=== PATIENT | female | born 2000 | race African-American/Black ===

== ENCOUNTER 2025-05-07 19:05 | Emergency (ER) | payer OTHER ==
[~2025-05-07] VITALS: Ht 157.5 cm; Wt 76.5 kg
[2025-05-07 19:09] VITALS: TEMP 97.8
[2025-05-07 21:22] LABS: BASO # 0.0 10^3/uL (0.0-0.2); BASO % 0.4 % (0.0-1.0); EOS # 0.1 10^3/uL (0.0-0.5); EOS % 1.1 % (0.0-3.0); LYMPH # 2.0 10^3/uL (1.5-5.0); LYMPH % 24.4 % (24.0-44.0); MONO # 0.7 10^3/uL (0.0-0.8); MONO % 8.2 % (2.0-8.0); NEUTROPHILS # 5.5 10^3/uL (1.5-8.5); NEUTROPHILS % 65.7 % (36.0-66.0); PLATELET COUNT, AUTOMATED 298 10^3/uL (150-450)
[2025-05-07 21:37] LABS: ALT/SGPT 11 U/L (7.0-40); AST/SGOT 14 U/L (<34); CALCIUM LEVEL 8.8 MG/DL (8.5-10.1); CARBON DIOXIDE LEVEL 24 MMOL/L (20-31); CHLORIDE LEVEL 104 MMOL/L (98-107); CREATININE FOR GFR 0.60 MG/DL (0.55-1.30); GLOMERULAR FILTRATION RATE > 90.0 (>60); MAGNESIUM LEVEL 1.8 MG/DL (1.8-2.4); POTASSIUM SERUM 3.8 MMOL/L (3.5-5.1); SODIUM LEVEL 138 MMOL/L (136-145)
[2025-05-07 21:39] LABS: FREE T4 1.01 NG/DL (0.89-1.76)
[2025-05-07] MEDS: NS (Normal Saline) 0.9% 1,000 ML IV ONE (21:50)
[2025-05-07 22:03] LABS: HCG, SERUM QUANTITATIVE 138573.9 MIU/ML (<4.2)
[2025-05-08 00:22] LABS: KETONE, URINE AUTO RFX NEGATIVE (NEGATIVE); NITRITE, URINE AUTO RFX NEGATIVE (NEGATIVE); RBC, URINE AUTO RFX 1 /HPF (0-3); SQUAM EPITHELIAL CELL UR AURFX 4 /HPF (0-6); WBC, URINE AUTO RFX 8 /HPF (0-3)
[2025-05-08 00:45] VITALS: BP 97/53; O2SAT 99
[2025-05-08 01:25] LABS: LEUKOCYTE ESTERASE UR AUTO RFX 1+ (NEGATIVE)
== END 2025-05-08 01:00 | disposition home or self-care (01) ==
LOC: M ED 19:05
DX: E86.0 Dehydration (principal)

== ENCOUNTER 2025-07-28 09:56 | Emergency (ER) | payer OTHER ==
[~2025-07-28] VITALS: Ht 157.5 cm; Wt 79.4 kg
[2025-07-28 09:58] VITALS: BP 118/58; TEMP 98.7; O2SAT 97
== END 2025-07-28 10:07 | disposition admitted as inpatient to this hospital (09) ==
LOC: M ED 09:56
DX: Z53.21 Procedure and treatment not carried out due to patient leaving prior to being seen by health care provider (principal)

== ENCOUNTER 2025-07-28 10:15 | Outpatient (CLI) | payer OTHER ==
[~2025-07-28] VITALS: Ht 157.5 cm; Wt 79.9 kg
[2025-07-28 10:54] VITALS: BP 104/57
[2025-07-28 13:02] VITALS: BP 106/57
[2025-07-28 14:55] VITALS: BP 116/55
== END 2025-07-28 15:07 | disposition home or self-care (01) ==
LOC: M LDO 10:15
PROVIDERS: ATTEND Obstetrics & Gynecology
DX: O26.852 Spotting complicating pregnancy, second trimester (principal); Z3A.20 20 weeks gestation of pregnancy
CPT/HCPCS: 59025; 76815; 76817; G0463